=== PATIENT | male | born 1975 | race Caucasian/White ===

== ENCOUNTER 2017-10-19 22:06 | Emergency (ER) | payer MEDICAID ==
[~2017-10-19] VITALS: Ht 175.3 cm; Wt 76.0 kg
[2017-10-20 05:59] LABS: *AMPHETAMINES SCREEN URINE NEGATIVE (NEGATIVE)
[2017-10-20 06:00] LABS: *BARBITURATES SCREEN URINE NEGATIVE (NEGATIVE); *BENZODIAZEPINES SCREEN URINE NEGATIVE (NEGATIVE); *COCAINE SCREEN URINE NEGATIVE (NEGATIVE); CANNABINOID URINE SCREEN PRESUMTIVE POSITIVE (NEGATIVE); METHADONE URINE SCREEN NEGATIVE (NEGATIVE); OPIATES URINE SCREEN PRESUMTIVE POSITIVE (NEGATIVE)
[2017-10-20 06:01] LABS: PHENCYCLIDINE URINE SCREEN NEGATIVE (NEGATIVE)
[2017-10-20 06:30] VITALS: BP 116/79
[2017-10-20 06:40] LABS: BASOPHILS % 0.8 % (0.0-2.0); HEMATOCRIT. 39.1 % (42.0-52.0); HEMOGLOBIN. 13.3 g/dL (14.0-18.0); LYMPHOCYTES % 33.9 % (20.0-50.0); MEAN CORPUSCULAR HEMOGLOBIN 33.2 pg (28.0-32.0); MEAN CORPUSCULAR VOLUME 97.6 fL (80.0-94.0); MEAN PLATELET VOLUME 6.7 fl (7.4-10.4); MONOCYTES % 14.6 % (2.0-8.0); NEUTROPHILS % 47.7 % (40.0-76.0); PLATELET 348 x1000/uL (130-400); RED BLOOD CELL COUNT 4.01 mill/uL (4.7-6.1); RED CELL DISTRIBUTION WIDTH 13.8 % (11.6-14.6)
[2017-10-20 06:51] LABS: CHLORIDE 105 mEq/L (98-107)
[2017-10-20 06:55] LABS: ETHANOL BLOOD 48 mg/dL
== END 2017-10-20 08:15 | disposition home or self-care (01) ==
LOC: ER 10-20 01:36
DX: K40.90 Unilateral inguinal hernia, without obstruction or gangrene, not specified as recurrent (principal); N43.3 Hydrocele, unspecified; F12.10 Cannabis abuse, uncomplicated; F17.200 Nicotine dependence, unspecified, uncomplicated; F10.21 Alcohol dependence, in remission
CPT/HCPCS: 36415; 76870; 80048; 80305; 80307; 80329; 85025; 93976; 99285; G0482; Z7610

== ENCOUNTER 2018-05-10 18:30 | Emergency (ER) | payer MEDICAID ==
[~2018-05-10] VITALS: Ht 175.3 cm; Wt 75.0 kg
[2018-05-10] MEDS ORDERED: IBUPROFEN 600MG TABLET PO ONE (21:00)
[2018-05-10] MEDS ORDERED: TRAMADOL 50MG TABLET PO ONE (21:30)
[2018-05-10] MEDS ORDERED: HYDROCODONE/ACETAMINOPHEN 5/325MG TABLET PO ONE (21:45)
[2018-05-10 21:46] VITALS: BP 122/81
== END 2018-05-10 22:18 | disposition home or self-care (01) ==
LOC: ER 18:30
DX: L03.115 Cellulitis of right lower limb (principal); L03.116 Cellulitis of left lower limb; Z86.14 Personal history of Methicillin resistant Staphylococcus aureus infection; F12.90 Cannabis use, unspecified, uncomplicated; F17.210 Nicotine dependence, cigarettes, uncomplicated; F10.10 Alcohol abuse, uncomplicated; F15.21 Other stimulant dependence, in remission; Y90.9 Presence of alcohol in blood, level not specified; Z85.828 Personal history of other malignant neoplasm of skin
CPT/HCPCS: 73630; 99284